=== PATIENT | female | born 1965 ===

== ENCOUNTER 2018-01-19 19:52 | Emergency (ER) | payer OTHER ==
[~2018-01-19] VITALS: Ht 154.9 cm; Wt 69.9 kg
== END 2018-01-19 23:45 ==
LOC: ER 19:52
DX: S63.690A Other sprain of right index finger, initial encounter (principal); L03.011 Cellulitis of right finger; X50.9XXA Other and unspecified overexertion or strenuous movements or postures, initial encounter; Y93.89 Activity, other specified; Y92.89 Other specified places as the place of occurrence of the external cause; Y99.8 Other external cause status